=== PATIENT | female | born 1980 | race Caucasian/White ===

== ENCOUNTER 2025-04-16 10:42 | Outpatient (CLI) | payer MEDICARE, MEDICAID ==
--- NOTE | 2025-04-16 13:01 | RADIOLOGY REPORT ---
CLINICAL INDICATION: CEREBRAL CYSTS COMPARISON: None TECHNIQUE: Multisequence multiplanar MRI images of the brain were obtained without contrast. FINDINGS: No acute infarct or hemorrhage. There is no midline shift. Ventricles and sulci are within normal limits in size. There is a cystic structure superior to the cerebellar vermis, posterior to the tectum, and inferior to the splenium of the corpus callosum, measuring up to 2.4 cm in AP dimension, 2.2 cm in transverse dimension. Pineal gland is poorly visualized, appears to be displaced to the left of midline by the cystic mass. Evaluation is limited without IV contrast. There is moderate mass effect on the superior aspect of the cerebellar vermis. There is elevation of the tentorium by the mass. Cerebellar tonsils extend to the level of the foramen magnum, without significant cerebellar tonsillar ectopia. Mild mucosal thickening of the paranasal sinuses. Orbits are grossly unremarkable. IMPRESSION: 1. 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 2. Pineal gland is poorly visualized, appears to be displaced by the mass to the left of midline. 3. No acute infarct.
== END 2025-04-16 23:59 | disposition home or self-care (01) ==
LOC: MRI02 10:42
PROVIDERS: ATTEND Neuromusculoskeletal Medicine & OMM
DX: G93.0 Cerebral cysts (principal); R22.0 Localized swelling, mass and lump, head
CPT/HCPCS: 70551